=== PATIENT | male | born 1995 | race Two or more races ===

== ENCOUNTER 2020-12-16 05:52 | Day surgery (SDC) | payer OTHER ==
[2020-12-16] MEDS ORDERED: MIRALAX17 GM PO (07:40)
[2020-12-16] MEDS ORDERED: TYLENOL ARTHRI650 MG PO (07:40)
[2020-12-16] MEDS ORDERED: ULTRAM50 MG PO (07:40)
== END 2020-12-16 11:55 | disposition home or self-care (01) ==
LOC: CIR.AMB 05:52
PROVIDERS: ATTEND Surgery
DX: K80.10 Calculus of gallbladder with chronic cholecystitis without obstruction (principal); Z20.822 Contact with and (suspected) exposure to COVID-19